=== PATIENT | male | born 1930 | race Caucasian/White ===

== ENCOUNTER → 2016-04-21 | Outpatient (CLI) | payer MEDICARE | END | disposition home or self-care (01) | LOC: PCVCCLINIC 10:38 | PROVIDERS: ATTEND Internal Medicine | DX: I50.9 Heart failure, unspecified (principal); I25.5 Ischemic cardiomyopathy; E11.9 Type 2 diabetes mellitus without complications; I35.0 Nonrheumatic aortic (valve) stenosis; I48.0 Paroxysmal atrial fibrillation; E78.00 Pure hypercholesterolemia, unspecified; Z95.810 Presence of automatic (implantable) cardiac defibrillator | CPT/HCPCS: G0463 ==

== ENCOUNTER → 2016-10-24 | Outpatient (CLI) | payer MEDICARE | END | disposition home or self-care (01) | LOC: PCVCCLINIC 12:00 | PROVIDERS: ATTEND Internal Medicine | DX: I50.22 Chronic systolic (congestive) heart failure (principal); I35.0 Nonrheumatic aortic (valve) stenosis; I48.0 Paroxysmal atrial fibrillation; I45.10 Unspecified right bundle-branch block; I44.4 Left anterior fascicular block; E78.5 Hyperlipidemia, unspecified; I25.5 Ischemic cardiomyopathy; E11.9 Type 2 diabetes mellitus without complications; I25.2 Old myocardial infarction; Z79.82 Long term (current) use of aspirin; Z79.4 Long term (current) use of insulin; Z95.810 Presence of automatic (implantable) cardiac defibrillator | CPT/HCPCS: 36415; 80061; G0463 ==

== ENCOUNTER → 2017-01-27 | Outpatient (CLI) | payer MEDICARE ==
--- NOTE | 2017-01-27 12:38 | PCVCIMAG ---
APPROVED REPORT Study performed: 01/27/2017 11:29:04 EXAM: Comprehensive 2D, Doppler, and color-flow Echocardiogram Patient Location: Echo lab Room #: 3Status: routine BSA: 2.51 HR: 66 bpmBP: 134/62 mmHg Rhythm: NSR Other Information Study Quality: Technically Limited Risk Factors: Cardiac Risk Factors: HTN, DM Indications Dyspnea Pacemaker Cardiomyopathy Fatigue Ischemic CM, Hx [place],ICD 2D Dimensions LVEF(%): 35.91 (>50%) IVSd: 8.82 (7-11mm)LVOT Diam: 22.98 (18-24mm) LVDd: 62.26 mm PWd: 11.85 (7-11mm)Ascending Ao: 33.01 (22-36mm) LVDs: 51.30 (25-40mm) Left Atrium: 50.93 (27-40mm) Aortic Root: 22.76 mm LV Single Plane 4CH: 29.96 % Vaughn's LVEF: 35.91 % Volumes Left Atrial Volume (Systole) Single Plane 4CH: 79.68 mLSingle Plane 2CH: 119.42 mL Biplane LA Volume: 105.00 mLLA ESV Index: 42.00 mL/m2 Aortic Valve AoV Peak Kranthi.: 3.53 m/s AO Peak Gr.: 52.92 mmHgLVOT Max P.72 mmHg AO Mean Gr.: 31.77 mmHgLVOT Mean P.67 mmHg AO V2 Mean: 2.72 m/sLVOT Max V: 0.84 m/s AO V2 VTI: 88.59 cm NAA (VTI): 0.93 [id number] V1 VTI: 19.92 cm NAA Vmax: 0.99 cm2 Mitral Valve E/A Ratio: 1.2 MV Decel. Time: 224.81 ms MV E Max Kranthi.: 1.40 m/s MV A Kranthi.: 1.21 m/s MV PHT: 65.20 ms IVRT: 58.82 ms Pulmonary Valve PV Peak Kranthi.: 0.99 m/sPV Peak Gr.: 3.95 mmHg Pulmonary Vein P Vein S: 0.49 m/sP Vein A: 0.29 m/s P Vein D: 0.59 m/sP Vein A Dur.: 76.1 msec P Vein S/D Ratio: 0.83 Tricuspid Valve TR Peak Kranthi.: 2.55 m/s TR Peak Gr.: 26.09 mmHg TV Vmax: 0.50 m/sPA Pressure: 33.00 mmHg Left Ventricle Left ventricle is mildly dilated. Akinesis of mid to distal septum and apex. Mild concentric left ventricular hypertrophy. Left ventricular systolic function is moderate to severely decreased. LVEF is 30-35%. Moderate diastolic dysfunction is present (pseudonormal filling). Right Ventricle The right ventricle is normal size. The right ventricular systolic function is normal. Atria Left atrium is moderately dilated. A pacemaker wire is seen in the right atrium consistent with history. Aortic Valve The aortic valve is not well visualized. Aortic valve leaflets are sclerotic with at least moderately decreased opening. No aortic regurgitation is present. Calculated aortic valve area is 1.0 cm2 with maximum pressure gradient of 49 mmHg and mean pressure gradient of 32 mmHg. Mitral Valve Moderate mitral annular calcification There is no mitral valve regurgitation noted. No evidence of mitral valve stenosis. Tricuspid Valve The tricuspid valve is normal in structure. There is no tricuspid valve regurgitation noted. Pulmonic Valve The pulmonary valve is normal in structure. There is no pulmonic valvular regurgitation. Great Vessels The aortic root is normal in size. The ascending aorta is normal in size. IVC is normal in size and collapses with >50% inspiration Pericardium There is no pericardial effusion. There is no pleural effusion. <Conclusion> Technically limited study Left ventricular systolic function is moderate to severely decreased. Akinesis of mid to distal septum and apex. LVEF is 30-35%. Left atrium is moderately dilated. Calcified aortic leaflets. Calculated aortic valve area is 1.0 cm2 with maximum pressure gradient of 49 mmHg and mean pressure gradient of 32 mmHg. No aortic insufficiency Moderate mitral annular calcification. No mitral valve regurgitation noted. Pulmonary artery pressure of 30mmHg There is no pericardial effusion.
== END | disposition home or self-care (01) ==
LOC: PCVCIMAG 10:05
PROVIDERS: ATTEND Internal Medicine
DX: R06.00 Dyspnea, unspecified (principal); I42.9 Cardiomyopathy, unspecified; R53.83 Other fatigue; I25.5 Ischemic cardiomyopathy; I50.22 Chronic systolic (congestive) heart failure; I35.0 Nonrheumatic aortic (valve) stenosis; I48.0 Paroxysmal atrial fibrillation; E78.5 Hyperlipidemia, unspecified; I25.2 Old myocardial infarction; Z95.810 Presence of automatic (implantable) cardiac defibrillator; Z79.82 Long term (current) use of aspirin; Z79.899 Other long term (current) drug therapy; Z95.0 Presence of cardiac pacemaker
CPT/HCPCS: 93005; 93306; G0463

== ENCOUNTER → 2017-04-29 | Outpatient (CLI) | payer MEDICARE | END | disposition home or self-care (01) | LOC: PCVCCLINIC 11:46 | DX: I50.22 Chronic systolic (congestive) heart failure (principal); I25.5 Ischemic cardiomyopathy; I35.0 Nonrheumatic aortic (valve) stenosis; I48.0 Paroxysmal atrial fibrillation; E78.5 Hyperlipidemia, unspecified; R94.31 Abnormal electrocardiogram [ECG] [EKG]; Z95.810 Presence of automatic (implantable) cardiac defibrillator; Z79.899 Other long term (current) drug therapy; Z79.82 Long term (current) use of aspirin; Z79.4 Long term (current) use of insulin | CPT/HCPCS: 80061; 93005; G0463 ==

== ENCOUNTER → 2017-07-31 | Outpatient (CLI) | payer MEDICARE | END | disposition home or self-care (01) | LOC: PCVCCLINIC 10:25 | DX: I50.22 Chronic systolic (congestive) heart failure (principal); I25.5 Ischemic cardiomyopathy; I35.0 Nonrheumatic aortic (valve) stenosis; I48.0 Paroxysmal atrial fibrillation; E78.5 Hyperlipidemia, unspecified; Z95.810 Presence of automatic (implantable) cardiac defibrillator; Z79.899 Other long term (current) drug therapy; Z79.4 Long term (current) use of insulin | CPT/HCPCS: 93005; G0463 ==

== ENCOUNTER → 2018-01-13 | Outpatient (CLI) | payer MEDICARE ==
--- NOTE | 2018-01-13 12:27 | PCVCIMAG ---
APPROVED REPORT Study performed: 01/13/2018 12:04:13 EXAM: Comprehensive 2D, Doppler, and color-flow Echocardiogram Patient Location: Echo lab Room #: 3Status: routine BSA: 2.41 HR: 88 bpmBP: 128/68 mmHg Rhythm: Pacemaker Other Information Study Quality: Technically Difficult Risk Factors: Cardiac Risk Factors: DM, Hyperlipidemia Indications ICD: Congestive Heart Failure CAD HX: Akinesis of the septum,anterolateral reed and apex 2D Dimensions IVSd: 8.97 (7-11mm)LVOT Diam: 22.70 (18-24mm) LVDd: 68.91 mm PWd: 9.36 (7-11mm)Ascending Ao: 38.05 (22-36mm) LVDs: 63.64 (25-40mm) Left Atrium: 40.15 (27-40mm) Aortic Root: 29.51 mm LV Single Plane 4CH: 25.33 % Volumes Left Atrial Volume (Systole) Single Plane 4CH: 87.24 mLSingle Plane 2CH: 86.10 mL Biplane LA Volume: 97.00 mLLA ESV Index: 40.00 mL/m2 Aortic Valve AoV Peak Kranthi.: 3.27 m/s AO Peak Gr.: 45.82 mmHgLVOT Max P.63 mmHg AO Mean Gr.: 26.60 mmHgLVOT Mean P.76 mmHg AO V2 Mean: 2.44 m/sLVOT Max V: 0.61 m/s AO V2 VTI: 80.35 cm NAA (VTI): 0.68 [id number] V1 VTI: 13.48 cm NAA Vmax: 0.76 cm2 Mitral Valve E/A Ratio: 1.5 MV Decel. Time: 162.35 ms MV E Max Kranthi.: 1.33 m/s MV A Kranthi.: 0.90 m/s MV PHT: 47.08 ms Pulmonary Valve PV Peak Gr.: 2.23 mmHg Tricuspid Valve TR Peak Kranthi.: 3.34 m/s TR Peak Gr.: 44.71 mmHg TV Vmax: 0.58 m/sPA Pressure: 52.00 mmHg Left Ventricle Left ventricle is severely dilated. There is normal left ventricular wall thickness. Left ventricular systolic function is severely decreased. LVEF is 25%. This study is not technically sufficient to allow evaluation of the LV diastolic function. Right Ventricle The right ventricle is normal size. The right ventricular systolic function is normal. Atria Left atrium is mildly dilated. Right atrium is mildly dilated. Pacemaker lead is present in the right atrium. Aortic Valve Aortic valve is trileaflet, modetately calcified. Moderately severe stenosis No aortic regurgitation is present. Severe aortic stenosis. Highest mean aortic valve gradient is 27_mmHg. Peak aortic valve gradient is 43mmHg, mean gradient 27mm Hg. Calculated NAA by the continuity equation is 0.8 cm2. Mitral Valve Moderate mitral annular calcification, sclerotic leaflets. There is no mitral valve regurgitation noted. No evidence of mitral valve stenosis. Tricuspid Valve The tricuspid valve is normal in structure. Mild tricuspid regurgitation with a PA pressure of 50 mmHg. Moderate pulmonary hypertension. Pulmonic Valve The pulmonary valve is normal in structure. There is no pulmonic valvular regurgitation. Great Vessels The aortic root is normal in size. Aortic arch is not well visualized. The ascending aorta is normal in size. IVC is normal in size and collapses >50% with inspiration. Pericardium There is no pericardial effusion. There is no pleural effusion. <Conclusion> Left ventricular systolic function is severely decreased. LVEF is 25%. Both atria are dilated Aortic valve is trileaflet, modetately calcified. Moderately severe to severe stenosis Peak aortic valve gradient is 43mmHg, mean gradient 27mm Hg. Calculated NAA 0.8 cm2. Moderate mitral annular calcification, sclerotic leaflets. No mitral valve regurgitation . Mild tricuspid regurgitation with a pulmonary artery pressure of 50 mmHg. There is no pericardial effusion.
== END | disposition home or self-care (01) ==
LOC: PCVCIMAG 10:45
PROVIDERS: ATTEND Internal Medicine
DX: I07.1 Rheumatic tricuspid insufficiency (principal); I50.22 Chronic systolic (congestive) heart failure; I25.5 Ischemic cardiomyopathy; I35.0 Nonrheumatic aortic (valve) stenosis; I48.0 Paroxysmal atrial fibrillation; E78.5 Hyperlipidemia, unspecified; I27.20 Pulmonary hypertension, unspecified; E11.9 Type 2 diabetes mellitus without complications; Z95.810 Presence of automatic (implantable) cardiac defibrillator; Z79.4 Long term (current) use of insulin
CPT/HCPCS: 80061; 93005; 93283; 93306; G0463

== ENCOUNTER → 2018-07-14 | Outpatient (CLI) | payer MEDICARE | END | disposition home or self-care (01) | LOC: PCVCCLINIC 10:00 | PROVIDERS: ATTEND Internal Medicine | DX: I50.22 Chronic systolic (congestive) heart failure (principal); I25.5 Ischemic cardiomyopathy; I35.0 Nonrheumatic aortic (valve) stenosis; I48.0 Paroxysmal atrial fibrillation; E78.5 Hyperlipidemia, unspecified; Z95.810 Presence of automatic (implantable) cardiac defibrillator | CPT/HCPCS: 36415; 80061; 93005; G0463 ==

== ENCOUNTER → 2019-01-10 | Outpatient (CLI) | payer MEDICARE | END | disposition home or self-care (01) | LOC: PCVCCLINIC 11:40 | PROVIDERS: ATTEND Internal Medicine | DX: I25.5 Ischemic cardiomyopathy (principal); I35.0 Nonrheumatic aortic (valve) stenosis; I48.0 Paroxysmal atrial fibrillation; I50.22 Chronic systolic (congestive) heart failure; E11.9 Type 2 diabetes mellitus without complications; R94.31 Abnormal electrocardiogram [ECG] [EKG]; Z95.810 Presence of automatic (implantable) cardiac defibrillator; Z79.82 Long term (current) use of aspirin; Z79.899 Other long term (current) drug therapy | CPT/HCPCS: 93005; G0463 ==